=== PATIENT | female | born 1995 | race Caucasian/White ===

== ENCOUNTER 2021-06-10 21:30 | Emergency (ER) | payer BC ==
[~2021-06-10] VITALS: Ht 172.7 cm; Wt 93.4 kg
[2021-06-10 21:35] VITALS: BP 143/103
--- NOTE | 2021-06-10 21:39 | NUR ---
AMBULATED TO BED 12
--- NOTE | 2021-06-10 21:40 | NUR ---
25 Y/O FEMALE THAT CAME INTO ED WITH C/O OF BILATERAL EYES SWELLING DUE TO ALLERGIC REACTION OF UNKNOWN FACTOR. PT. DENIES PAIN/N/V/D/FEVER. PT. STATES THAT SWELLING OF BILATERAL EYES STARTED 20 MINS AGO PRIOR TO ARRIVAL. DENIES EATING NEW FOOD. PT. STATES "I WAS ONLY GIFT WRAPPING AND I TURNED ON THE FAN THEN I STARTED TO SNEEZE 10 TIMES." AAOX4; VSS
[2021-06-10] MEDS ORDERED: EPIN1KIT31 IM (22:33)
[2021-06-10] MEDS ORDERED: FAMO-90 PO (22:33)
[2021-06-10] MEDS ORDERED: DIPH25TA53 PO (22:33)
[2021-06-10] MEDS ORDERED: PRED20TA6 PO (22:33)
[2021-06-10] MEDS: methylPREDNISolone SS 125 MG/2 ML VIAL IM ONE (22:35)
[2021-06-10] MEDS: FAMOTIDINE 20 MG TAB PO ONE (22:36)
--- NOTE | 2021-06-10 22:38 | NUR ---
PER DR. CHENG ORDERS TO KEEP PT. 30 MINS AFTER SOLUMEDEROL IM SHOT FOR OBSERVATION
[2021-06-10 23:10] VITALS: BP 143/103
--- NOTE | 2021-06-10 23:10 | NUR ---
Patient discharged with v/s stable. Written and verbal after care instructions given and explained. Patient alert, oriented and verbalized understanding of instructions. Ambulatory with steady gait. All questions addressed prior to discharge. ID band removed. Patient advised to follow up with PMD. Rx of BENADRYL, EPIPEN, PEPCID, AND PREDNISONE given. Patient educated on indication of medication including possible reaction and side effects. Opportunity to ask questions provided and answered.
== END 2021-06-10 23:10 | disposition home or self-care (01) ==
LOC: MED 21:30
DX: T78.1XXA Other adverse food reactions, not elsewhere classified, initial encounter (principal); X58.XXXA Exposure to other specified factors, initial encounter
CPT/HCPCS: 96372; 99283; J2930; Q0163